=== PATIENT | male | born 1955 | race Caucasian/White ===

== ENCOUNTER 2017-04-16 06:54 | Day surgery (SDC) | payer MEDICARE ==
[2017-04-16 07:42] VITALS: BMI 34.7
[2017-04-16] MEDS ORDERED: Propofol 10 mg/ml Inj (20 ML) ONE (09:11)
[2017-04-16] MEDS ORDERED: Lidocaine Hydrochloride 5 ML INJ ONE (09:12)
--- NOTE | 2017-04-16 09:13 | CP.SDSHP ---
Same Day Surgery H & P - History Proposed Procedure: COLONSCOPY Pre-Op Diagnosis: SEE NOTES - Previous Medical/Surgical History Cardiac: Hypertension, ASHD/CAD Pulmonary: Asthma Endocrine/Metabolic: Diabetes, Other Pain: 4.Moderate Pain - Allergies Allergies: Allergies No Known Allergies Allergy (Verified 01/10/16 08:13) - Physical Exam General Appearance: N Vital Signs: Vital Signs 04/16/17 07:44 Temperature 97.7 F Pulse Rate 80 Respiratory 20 Rate Blood Pressure 124/77 O2 Sat by Pulse 97 Oximetry Mental Status: Alert & Oriented x3 Neuro: WNL Heart: Other Lungs: Other GI: WNL - {Optional Preform as Required} Breast: WNL Abdomen: Other Rectal: Other Integument: WNL : WNL Ortho: WNL ENT: WNL - Impression Pt. Evaluated Today:Candidate for Anesthesia & Procedure: Yes - Date & Time Time: 09:13 Short Stay Discharge - Short Stay Discharge Admitting Diagnosis/Reason for Visit: COLON POLYP Disposition: HOME/ ROUTINE
[2017-04-16] MEDS ORDERED: Belladonna-Phenobarbital PO ONE (09:30)
[2017-04-16 09:59] VITALS: TEMP 97.8
[2017-04-16 12:28] VITALS: BP 125/70; PULSE 88; RESP 16; O2SAT 100
== END 2017-04-16 12:18 | disposition home or self-care (01) ==
LOC: C.ENDO 06:54
PROVIDERS: ATTEND Specialist
DX: K57.90 Diverticulosis of intestine, part unspecified, without perforation or abscess without bleeding (principal); K64.8 Other hemorrhoids; K58.9 Irritable bowel syndrome, unspecified
CPT/HCPCS: 45378; 82948; J2704

== ENCOUNTER 2018-09-23 06:42 | Day surgery (SDC) | payer MEDICARE ==
[2018-09-23] MEDS ORDERED: Lactated Ringer's 1,000 ML IV ONE (08:10)
--- NOTE | 2018-09-23 08:12 | CP.SDSHP ---
Same Day Surgery H & P - History Proposed Procedure: COLONSCOPY Pre-Op Diagnosis: SEE NOTES - Previous Medical/Surgical History Cardiac: Hypertension, ASHD/CAD Pulmonary: Asthma Endocrine/Metabolic: Diabetes, Other Misc: Other Previous Surgical History: POLYPECTOMY , BY COLONSCOPY - Allergies Allergies: Allergies No Known Allergies Allergy (Verified 01/10/16 08:13) - Physical Exam General Appearance: N Vital Signs: Vital Signs 09/23/18 07:05 Temperature 97.3 F L Pulse Rate 80 Respiratory 20 Rate Blood Pressure 144/87 O2 Sat by Pulse 97 Oximetry Mental Status: Alert & Oriented x3 Neuro: WNL Heart: Other Lungs: Other GI: Other - {Optional Preform as Required} Breast: WNL Abdomen: Other Rectal: Other Integument: WNL : Other Ortho: WNL ENT: WNL - Impression Pt. Evaluated Today:Candidate for Anesthesia & Procedure: Yes - Date & Time Time: 08:12 Short Stay Discharge - Short Stay Discharge Admitting Diagnosis/Reason for Visit: PERSONAL HISTORY OF COLONIC POLYPS Disposition: HOME/ ROUTINE Referrals: Bernadette Thompson MD [Primary Care Provider] -
[2018-09-23] MEDS ORDERED: Propofol 10 mg/ml Inj (20 ML) ONE (08:18)
[2018-09-23] MEDS ORDERED: Lidocaine Hydrochloride 5 ML INJ ONE (08:31)
[2018-09-23 08:42] VITALS: RESP 18; TEMP 98.4
[2018-09-23] MEDS ORDERED: Belladonna-Phenobarbital PO ONE (08:50)
[2018-09-23 08:52] VITALS: O2SAT 98
[2018-09-23 09:12] VITALS: PULSE 80
[2018-09-23 09:54] VITALS: BP 130/85
== END 2018-09-23 09:49 | disposition home or self-care (01) ==
LOC: C.ENDO 06:42
PROVIDERS: ATTEND Specialist
DX: Z12.11 Encounter for screening for malignant neoplasm of colon (principal); D12.5 Benign neoplasm of sigmoid colon; Z86.010 Personal history of colon polyps; K57.30 Diverticulosis of large intestine without perforation or abscess without bleeding; K64.8 Other hemorrhoids; K64.4 Residual hemorrhoidal skin tags; J44.9 Chronic obstructive pulmonary disease, unspecified; I10 Essential (primary) hypertension; E11.9 Type 2 diabetes mellitus without complications; I25.10 Atherosclerotic heart disease of native coronary artery without angina pectoris
CPT/HCPCS: 45380; 82948; 88305; J2704; J7120